=== PATIENT | female | born 1985 | race Two or more races ===

== ENCOUNTER 2016-05-08 13:51 | Inpatient (IN) | payer SELFPAY ==
[2016-05-08 15:28] LABS: BASOPHILS % (AUTO) 0.3 % (0.2-1.0); EOSINOPHILS % (AUTO) 0.5 % (0.9-2.9); HEMATOCRIT 31.8 % (36.0-47.0); HEMOGLOBIN 10.4 g/dL (12.0-16.0); LYMPHOCYTES # (AUTO) 1.2 X10^3/uL (1.3-2.9); LYMPHOCYTES % (AUTO) 17.3 % (21.0-51.0); MEAN CORPUSCULAR HEMOGLOBIN 25.5 pg (27.0-34.0); MEAN CORPUSCULAR HGB CONC 32.6 g/dL (33.0-35.0); MEAN CORPUSCULAR VOLUME 78.2 fL (80.0-100.0); MEAN PLATELET VOLUME 8.8 fL (7.4-11.0); MONOCYTES # (AUTO) 0.6 x10^3/uL (0.3-0.8); MONOCYTES % (AUTO) 8.5 % (0.0-13.0); NEUTROPHILS # (AUTO) 5.1 x10^3/uL (2.2-4.8); NEUTROPHILS % (AUTO) 73.4 % (42.0-75.0); PLATELET COUNT 185 X10^3/uL (150.0-450.0); RED BLOOD COUNT 4.06 X10^6/uL (3.5-5.4); RED CELL DISTRIBUTION WIDTH 15.6 % (11.6-16.5)
[2016-05-08 15:45] LABS: PLATELET MORPHOLOGY COMMENT NORMAL (NORMAL)
[2016-05-08 16:01] LABS: ALANINE AMINOTRANSFERASE 25 Units/L (12-78); ALBUMIN 2.4 g/dL (3.4-5.0); ALKALINE PHOSPHATASE 209 Units/L (46-116); ASPARTATE AMINO TRANSFERASE 23 Units/L (15-37); BLOOD UREA NITROGEN 6 mg/dL (7-18); CARBON DIOXIDE 20.6 mmol/L (21-32); CHLORIDE 107 mmol/L (98-107); COR CA(FOR HYPOALB) 9.3 mg/dL (8.5-10.1); CREATININE 0.55 mg/dL (0.55-1.02); GLUCOSE 79 mg/dL (65-99); SODIUM 139 mmol/L (136-145); TOTAL PROTEIN 6.4 g/dL (6.4-8.2); eGFR BLACK RACES > 60 (>60); eGFR NON BLACK RACES > 60 (>60)
[2016-05-08 18:23] VITALS: BMI 29.7
[2016-05-09 06:10] LABS: BASOPHILS % (AUTO) 0.3 % (0.2-1.0); EOSINOPHILS # (AUTO) 0.1 x10^3/uL (0.0-0.2); EOSINOPHILS % (AUTO) 2.1 % (0.9-2.9); HEMOGLOBIN 9.5 g/dL (12.0-16.0); LYMPHOCYTES % (AUTO) 30.3 % (21.0-51.0); MEAN CORPUSCULAR HEMOGLOBIN 25.8 pg (27.0-34.0); MEAN CORPUSCULAR HGB CONC 32.8 g/dL (33.0-35.0); MEAN CORPUSCULAR VOLUME 78.5 fL (80.0-100.0); MEAN PLATELET VOLUME 9.1 fL (7.4-11.0); MONOCYTES # (AUTO) 0.7 x10^3/uL (0.3-0.8); MONOCYTES % (AUTO) 10.9 % (0.0-13.0); NEUTROPHILS # (AUTO) 3.7 x10^3/uL (2.2-4.8); NEUTROPHILS % (AUTO) 56.4 % (42.0-75.0); PLATELET COUNT 157 X10^3/uL (150.0-450.0); RED BLOOD COUNT 3.69 X10^6/uL (3.5-5.4); RED CELL DISTRIBUTION WIDTH 15.6 % (11.6-16.5); WHITE BLOOD COUNT 6.6 X10^3/uL (3.6-10.0)
[2016-05-09 07:31] LABS: ALANINE AMINOTRANSFERASE 22 Units/L (12-78); ALKALINE PHOSPHATASE 181 Units/L (46-116); ASPARTATE AMINO TRANSFERASE 20 Units/L (15-37); BLOOD UREA NITROGEN 9 mg/dL (7-18); CALCIUM 7.7 mg/dL (8.5-10.1); CARBON DIOXIDE 20.6 mmol/L (21-32); CHLORIDE 108 mmol/L (98-107); COR CA(FOR HYPOALB) 9.3 mg/dL (8.5-10.1); CREATININE 0.55 mg/dL (0.55-1.02); GLUCOSE 68 mg/dL (65-99); SODIUM 141 mmol/L (136-145); TOTAL PROTEIN 5.5 g/dL (6.4-8.2); eGFR BLACK RACES > 60 (>60); eGFR NON BLACK RACES > 60 (>60)
[2016-05-09 07:53] LABS: HYPOCHROMASIA SLIGHT; PLATELET MORPHOLOGY COMMENT NORMAL (NORMAL)
--- NOTE | 2016-05-09 12:43 | US ---
HISTORY: Pre-eclampsia Study: OB ultrasound greater than 14 weeks Comparison: None Technique: Multiple grayscale and color flow Doppler images of the pelvis were obtained with focused evaluation of the fetus. Findings: A viable single intrauterine is identified with heart tones of 137 beats per minute. A vertex presentation is observed with a anterior placenta. Normal amniotic fluid volume is obser tala with an ZACHARY of 9.7 cm. Evaluation of the anatomy including the stomach, kidneys, and four- chamber heart are unremarkable. No intracranial abnormality can be identified. Value Estimated Gestational Age BPD 8.7 35 weeks 1 day HC 30.2 33 weeks 4 days AC 30.1 30 weeks 0 days FL 5.8 30 weeks 3 days IMPRESSION: A viable single intrauterine with an average ultrasound age of 33 weeks 2 days correspond to an estimated date of delivery of 06/24/2016. No anatomical abnormalities can be identified. Reported By:
[2016-05-09] MEDS ORDERED: ADACEL TDaP IM ONE (13:12)
[2016-05-09 17:55] LABS: CREATININE,URINE 107.47 mg/dL (29-226)
[2016-05-09 18:04] LABS: CREATININE 24 HOUR,URINE 1.02 g/24 hr (0.67-1.59); TOTAL PROTEIN,URINE 300.2 mg/dl (0-11.9)
--- NOTE | 2016-05-10 09:02 | US ---
Abdominal ultrasound Indication: Upper quadrant pain, patient. Comparison: None available Findings: There is no cholelithiasis, gallbladder distention, wall thickening, or pericholecystic fl uid. No biliary dilation is observed; the common duct measured 4 mm in diameter. The main portal vei n is patent, with antegrade flow. The visualized liver and right kidney were unremarkable. The pancr eas was obscured. Impression: Normal right upper quadrant ultrasound. Reported By:
[2016-05-11 05:36] LABS: ALANINE AMINOTRANSFERASE 15 Units/L (12-78); ALBUMIN 1.8 g/dL (3.4-5.0); ALKALINE PHOSPHATASE 175 Units/L (46-116); ASPARTATE AMINO TRANSFERASE 18 Units/L (15-37); BLOOD UREA NITROGEN 8 mg/dL (7-18); CALCIUM 7.4 mg/dL (8.5-10.1); CARBON DIOXIDE 21.4 mmol/L (21-32); CHLORIDE 109 mmol/L (98-107); COR CA(FOR HYPOALB) 9.2 mg/dL (8.5-10.1); CREATININE 0.51 mg/dL (0.55-1.02); GLUCOSE 69 mg/dL (65-99); SODIUM 139 mmol/L (136-145); TOTAL PROTEIN 5.3 g/dL (6.4-8.2); eGFR BLACK RACES > 60 (>60); eGFR NON BLACK RACES > 60 (>60)
[2016-05-11 05:38] LABS: BASOPHILS % (AUTO) 0.4 % (0.2-1.0); EOSINOPHILS # (AUTO) 0.1 x10^3/uL (0.0-0.2); EOSINOPHILS % (AUTO) 2.3 % (0.9-2.9); HEMATOCRIT 28.9 % (36.0-47.0); HEMOGLOBIN 9.5 g/dL (12.0-16.0); LYMPHOCYTES # (AUTO) 1.7 X10^3/uL (1.3-2.9); LYMPHOCYTES % (AUTO) 28.1 % (21.0-51.0); MEAN CORPUSCULAR HEMOGLOBIN 25.8 pg (27.0-34.0); MEAN CORPUSCULAR HGB CONC 32.9 g/dL (33.0-35.0); MEAN CORPUSCULAR VOLUME 78.3 fL (80.0-100.0); MEAN PLATELET VOLUME 9.4 fL (7.4-11.0); MONOCYTES # (AUTO) 0.6 x10^3/uL (0.3-0.8); MONOCYTES % (AUTO) 9.9 % (0.0-13.0); NEUTROPHILS # (AUTO) 3.7 x10^3/uL (2.2-4.8); NEUTROPHILS % (AUTO) 59.3 % (42.0-75.0); PLATELET COUNT 143 X10^3/uL (150.0-450.0); RED BLOOD COUNT 3.69 X10^6/uL (3.5-5.4); RED CELL DISTRIBUTION WIDTH 15.9 % (11.6-16.5); WHITE BLOOD COUNT 6.2 X10^3/uL (3.6-10.0)
[2016-05-11 06:01] LABS: HYPOCHROMASIA SLIGHT; PLATELET MORPHOLOGY COMMENT NORMAL (NORMAL)
[2016-05-13] MEDS ORDERED: D5LR 1000ML W PITOCIN 10 U/L 1,000 ML IV ONE (10:27)
[2016-05-13] MEDS ORDERED: PITOCIN ONE (10:28)
[2016-05-13] MEDS ORDERED: D5 1/2 NS 1000 ML 1,000 ML IV ONE (10:28)
[2016-05-13] MEDS ORDERED: D5 1/2 NS 1000ML W PITOCIN 20 U/L 1,000 ML IV ONE (10:28)
[2016-05-13] MEDS: D5 1/2 NS 1000 ML 1,000 ML IV SCH (11:00)
[2016-05-13] MEDS ORDERED: DILAUDID INJ IVP PRN (11:10)
[2016-05-13] MEDS ORDERED: MORPHINE SULFATE INJ 2 MG IVP PRN (11:10)
[2016-05-13] MEDS ORDERED: PHENERGAN INJ 25 MG IV PRN (11:10)
[2016-05-13] MEDS ORDERED: PITOCIN IVP ONE (11:10)
[2016-05-13] MEDS ORDERED: NUBAIN INJ 200 MG VIAL MULTIDOSE IVP PRN (11:10)
[2016-05-13] MEDS ORDERED: PITOCIN 10 UNITS in D5 LR 1000 ML 1,000 ML IV PRN (11:10)
[2016-05-13] MEDS ORDERED: REGLAN INJ 10 MG VIAL IVP PRN (11:10)
[2016-05-13] MEDS ORDERED: APRESOLINE INJ 20 MG VIAL ONE ×2 (11:18→19:38)
[2016-05-13] MEDS ORDERED: AMPICILLIN VIAL 2 GM ONE (11:18)
[2016-05-13] MEDS ORDERED: NS 100 ML IV + SPIKE MINIBAG* 100 ML IV ONE (11:19)
[2016-05-13] MEDS ORDERED: NS 100 ML IV 100 ML IV ONE (11:19)
[2016-05-13] MEDS: APRESOLINE INJ 20 MG VIAL IVP PRN ×3 (11:40→20:15)
[2016-05-13] MEDS ORDERED: AMPICILLIN VIAL 2 GM 2 GM in NS 100 ML IV + SPIKE MINIBAG* 100 ML IV SCH (12:00)
[2016-05-13 12:10] LABS: BASOPHILS % (AUTO) 0.3 % (0.2-1.0); EOSINOPHILS # (AUTO) 0.1 x10^3/uL (0.0-0.2); EOSINOPHILS % (AUTO) 0.8 % (0.9-2.9); HEMATOCRIT 33.1 % (36.0-47.0); HEMOGLOBIN 11.2 g/dL (12.0-16.0); LYMPHOCYTES # (AUTO) 1.8 X10^3/uL (1.3-2.9); LYMPHOCYTES % (AUTO) 21.7 % (21.0-51.0); MEAN CORPUSCULAR HEMOGLOBIN 25.8 pg (27.0-34.0); MEAN CORPUSCULAR HGB CONC 33.8 g/dL (33.0-35.0); MEAN CORPUSCULAR VOLUME 76.3 fL (80.0-100.0); MEAN PLATELET VOLUME 8.6 fL (7.4-11.0); MONOCYTES # (AUTO) 0.7 x10^3/uL (0.3-0.8); MONOCYTES % (AUTO) 8.8 % (0.0-13.0); NEUTROPHILS # (AUTO) 5.6 x10^3/uL (2.2-4.8); NEUTROPHILS % (AUTO) 68.4 % (42.0-75.0); PLATELET COUNT 162 X10^3/uL (150.0-450.0); RED BLOOD COUNT 4.34 X10^6/uL (3.5-5.4); RED CELL DISTRIBUTION WIDTH 15.6 % (11.6-16.5); WHITE BLOOD COUNT 8.2 X10^3/uL (3.6-10.0)
[2016-05-13 12:18] LABS: BLOOD UREA NITROGEN 6 mg/dL (7-18); CALCIUM 7.9 mg/dL (8.5-10.1); CARBON DIOXIDE 18.4 mmol/L (21-32); CHLORIDE 109 mmol/L (98-107); CREATININE 0.54 mg/dL (0.55-1.02); GLUCOSE 86 mg/dL (65-99); SODIUM 139 mmol/L (136-145); eGFR BLACK RACES > 60 (>60); eGFR NON BLACK RACES > 60 (>60)
[2016-05-13 12:34] LABS: HYPOCHROMASIA SLIGHT; PLATELET MORPHOLOGY COMMENT NORMAL (NORMAL)
[2016-05-13] MEDS: AMPICILLIN VIAL 1 GM 1 GM in NS 50 ML IV + SPIKE MINIBAG* 50 ML IV SCH ×2 (16:30→20:12)
[2016-05-13] MEDS ORDERED: NS 50 ML IV + SPIKE MINIBAG* 50 ML IV ONE (17:26)
[2016-05-13] MEDS ORDERED: AMPICILLIN VIAL 1 GM ONE (17:26)
[2016-05-13] MEDS ORDERED: CYTOTEC ONE ×2 (20:41→20:50)
[2016-05-13] MEDS ORDERED: PHENERGAN INJ 25 MG ONE (21:12)
[2016-05-13] MEDS ORDERED: LR 1000 ML IV 1,000 ML IV ONE (21:30)
[2016-05-13] MEDS ORDERED: CYTOTEC VG SCH ×2 (22:59→23:00)
[2016-05-14] MEDS: AMPICILLIN VIAL 1 GM 1 GM in NS 50 ML IV + SPIKE MINIBAG* 50 ML IV SCH ×2 (01:00→04:38)
[2016-05-14] MEDS: APRESOLINE INJ 20 MG VIAL IVP PRN ×2 (01:00→05:21)
[2016-05-14] MEDS ORDERED: APRESOLINE INJ 20 MG VIAL ONE (01:11)
[2016-05-14] MEDS ORDERED: NS 50 ML IV + SPIKE MINIBAG* 50 ML IV ONE ×2 (01:50→04:34)
[2016-05-14] MEDS ORDERED: AMPICILLIN VIAL 1 GM ONE ×2 (01:50→04:34)
[2016-05-14] MEDS: D5 1/2 NS 1000 ML 1,000 ML IV SCH ×2 (04:39→05:05)
[2016-05-14] MEDS ORDERED: D5 1/2 NS 1000 ML 1,000 ML IV ONE (05:04)
[2016-05-14] MEDS ORDERED: LR 1000 ML IV 1,000 ML IV ONE (06:57)
[2016-05-14] MEDS ORDERED: DURAMORPH ONE (07:16)
[2016-05-14] MEDS ORDERED: BENADRYL INJ 50 MG VIAL IVP PRN ×2 (08:09→08:29)
[2016-05-14] MEDS ORDERED: PHENERGAN INJ 25 MG IVP PRN (08:09)
[2016-05-14] MEDS ORDERED: ZOFRAN INJ 4 MG VIAL IVP PRN (08:09)
[2016-05-14] MEDS ORDERED: REGLAN INJ 10 MG VIAL IVP PRN (08:09)
[2016-05-14] MEDS ORDERED: MAGNESIUM SULFATE 40 GM IV 40 GM/1,000 ML BAG IV ONE (08:21)
[2016-05-14] MEDS ORDERED: PERCOCET TAB 5/325 MG PO PRN (08:29)
[2016-05-14] MEDS ORDERED: NARCAN INJ IVP PRN ×2 (08:29)
[2016-05-14] MEDS ORDERED: MYLICON TAB 80 MG CHEW PO PRN (08:29)
[2016-05-14] MEDS ORDERED: D5 1/2 NS 1000 ML 1,000 ML with PITOCIN 20 UNITS IV SCH ×2 (09:00)
[2016-05-14] MEDS ORDERED: NS 1000 ML 1,000 ML ONE (09:38)
[2016-05-14] MEDS: MAGNESIUM SULFATE 40 GM IV 40 GM/1,000 ML BAG IV PRN (09:42)
[2016-05-14] MEDS: TORADOL 30 MG VIAL IVP PRN ×2 (09:51→21:36)
[2016-05-14] MEDS: ZANTAC PO SCH ×2 (09:52→21:36)
[2016-05-14] MEDS: PRENATAL PLUS PO SCH (09:52)
[2016-05-14] MEDS ORDERED: EPHEDRINE SULFATE INJ ONE (13:04)
[2016-05-14] MEDS ORDERED: PITOCIN ONE (13:04)
[2016-05-14] MEDS ORDERED: VERSED ONE (13:04)
[2016-05-15] MEDS: MAGNESIUM SULFATE 40 GM IV 40 GM/1,000 ML BAG IV PRN ×2 (04:10→15:45)
[2016-05-15 06:04] LABS: HEMOGLOBIN 10.6 g/dL (12.0-16.0)
[2016-05-15] MEDS: PRENATAL PLUS PO SCH (08:24)
[2016-05-15] MEDS: MOTRIN TAB 800 MG PO PRN ×2 (08:24→15:30)
[2016-05-15] MEDS: ZANTAC PO SCH ×2 (08:24→21:14)
[2016-05-15] MEDS ORDERED: NS 1000 ML 1,000 ML ONE (15:07)
[2016-05-15] MEDS ORDERED: NS 1000 ML 1,000 ML IV SCH (16:00)
[2016-05-15] MEDS: PERCOCET TAB 5/325 MG PO PRN ×2 (17:42→21:41)
[2016-05-16] MEDS: PERCOCET TAB 5/325 MG PO PRN (06:17)
[2016-05-16 06:30] LABS: BASOPHILS % (AUTO) 0.2 % (0.2-1.0); EOSINOPHILS # (AUTO) 0.2 x10^3/uL (0.0-0.2); EOSINOPHILS % (AUTO) 1.8 % (0.9-2.9); HEMATOCRIT 32.4 % (36.0-47.0); HEMOGLOBIN 10.5 g/dL (12.0-16.0); LYMPHOCYTES # (AUTO) 1.5 X10^3/uL (1.3-2.9); LYMPHOCYTES % (AUTO) 17.4 % (21.0-51.0); MEAN CORPUSCULAR HEMOGLOBIN 25.3 pg (27.0-34.0); MEAN CORPUSCULAR HGB CONC 32.2 g/dL (33.0-35.0); MEAN CORPUSCULAR VOLUME 78.4 fL (80.0-100.0); MEAN PLATELET VOLUME 8.8 fL (7.4-11.0); MONOCYTES # (AUTO) 0.9 x10^3/uL (0.3-0.8); MONOCYTES % (AUTO) 10.2 % (0.0-13.0); NEUTROPHILS % (AUTO) 70.4 % (42.0-75.0); PLATELET COUNT 150 X10^3/uL (150.0-450.0); RED BLOOD COUNT 4.14 X10^6/uL (3.5-5.4); RED CELL DISTRIBUTION WIDTH 16.2 % (11.6-16.5); WHITE BLOOD COUNT 8.5 X10^3/uL (3.6-10.0)
[2016-05-16 06:40] LABS: ALANINE AMINOTRANSFERASE 30 Units/L (12-78); ALBUMIN 1.5 g/dL (3.4-5.0); ALKALINE PHOSPHATASE 149 Units/L (46-116); ASPARTATE AMINO TRANSFERASE 43 Units/L (15-37); BLOOD UREA NITROGEN 4 mg/dL (7-18); CARBON DIOXIDE 21.9 mmol/L (21-32); CHLORIDE 107 mmol/L (98-107); CREATININE 0.48 mg/dL (0.55-1.02); GLUCOSE 86 mg/dL (65-99); SODIUM 140 mmol/L (136-145); TOTAL PROTEIN 5.2 g/dL (6.4-8.2); eGFR BLACK RACES > 60 (>60); eGFR NON BLACK RACES > 60 (>60)
[2016-05-16 07:41] LABS: PLATELET MORPHOLOGY COMMENT NORMAL (NORMAL)
[2016-05-16 07:42] LABS: HYPOCHROMASIA SLIGHT
[2016-05-16] MEDS: ZANTAC PO SCH ×2 (08:36→21:10)
[2016-05-16] MEDS: PRENATAL PLUS PO SCH (08:36)
[2016-05-16] MEDS ORDERED: NORMODYNE TAB 100 MG PO SCH (11:00)
[2016-05-16] MEDS: BACTROBAN OINT TOP SCH ×3 (12:47→21:10)
[2016-05-16] MEDS ORDERED: MOTRIN TAB 800 MG PO PRN (14:20)
[2016-05-16] MEDS ORDERED: MYLICON TAB 80 MG CHEW PO PRN (14:20)
[2016-05-16] MEDS ORDERED: COLACE CAP 100 MG PO SCH (21:00)
[2016-05-16] MEDS: COLACE CAP 100 MG PO SCH (21:09)
[2016-05-16] MEDS: NORMODYNE TAB 100 MG PO SCH (21:10)
[2016-05-17] MEDS: BACTROBAN OINT TOP SCH ×2 (05:31→14:11)
[2016-05-17] MEDS: NORMODYNE TAB 100 MG PO SCH ×2 (09:16→20:52)
[2016-05-17] MEDS: COLACE CAP 100 MG PO SCH ×2 (09:16→20:51)
[2016-05-17] MEDS: PRENATAL PLUS PO SCH (09:17)
[2016-05-17] MEDS: ZANTAC PO SCH ×2 (09:17→20:52)
[2016-05-17] MEDS ORDERED: ADACEL TDaP IM ONE ×2 (10:50→17:47)
[2016-05-17] MEDS: PERCOCET TAB 5/325 MG PO PRN (20:51)
[2016-05-18] MEDS: BACTROBAN OINT TOP SCH (01:46)
[2016-05-18 08:02] VITALS: BP 134/72
[2016-05-18] MEDS: PRENATAL PLUS PO SCH (10:29)
[2016-05-18] MEDS: PERCOCET TAB 5/325 MG PO PRN (10:29)
[2016-05-18] MEDS: ZANTAC PO SCH (10:31)
[2016-05-18] MEDS: NORMODYNE TAB 100 MG PO SCH (10:31)
[2016-05-18] MEDS: COLACE CAP 100 MG PO SCH (10:31)
== END 2016-05-18 13:30 | disposition home or self-care (01) | DRG 765 ==
LOC: MED/SURG 13:51 → LD 05-13 11:00 → ICU 05-14 08:08 → MED/SURG 05-16 14:00
PROVIDERS: ADMIT Obstetrics & Gynecology Obstetrics; ATTEND Obstetrics & Gynecology Obstetrics
PROC: 3E033VJ Introduction of Other Hormone into Peripheral Vein, Percutaneous Approach (ICD-10-PCS; 2016-05-14)
PROC: 3E0234Z Introduction of Serum, Toxoid and Vaccine into Muscle, Percutaneous Approach (ICD-10-PCS; 2016-05-14)
PROC: 10D00Z1 Extraction of Products of Conception, Low, Open Approach (ICD-10-PCS; principal; 2016-05-14 07:30)
DX: O14.13 Severe pre-eclampsia, third trimester (principal); Z37.0 Single live birth; O36.5130 Maternal care for known or suspected placental insufficiency, third trimester, not applicable or unspecified; O61.8 Other failed induction of labor; O60.14X0 Preterm labor third trimester with preterm delivery third trimester, not applicable or unspecified; Z3A.35 35 weeks gestation of pregnancy; Z23 Encounter for immunization
CPT/HCPCS: 36415; 76705; 76815; 80048; 80053; 81050; 82570; 83525; 83735; 84157; 84550; 85014; 85018; 85025; 86592; 86850; 86900; 86901; A4216; A4222; S0191; S0197; J0290; J0360; J1885; J2250; J2550; J2590; J3475; J7042; J7120

== ENCOUNTER 2019-10-03 14:48 | Inpatient (IN) ==
[~2019-10-03 14:48] MED LIST: DECADRON INJ ONE; MARCAINE SPINAL ONE; TORADOL 30 MG VIAL ONE; XYLOCAINE 1 % (PLAIN) ONE; ZOFRAN INJ 4 MG VIAL ONE
[2019-10-03] MEDS ORDERED: LR 1000 ML IV 1,000 ML IV ONE ×2 (15:14→15:32)
[2019-10-03] MEDS ORDERED: ANCEF 1 GRAM IV PREMIX* 1 G/50 ML BAG IV ONE (15:14)
[2019-10-03 16:05] LABS: BASOPHILS % (AUTO) 0.6 % (0.2-1.0); EOSINOPHILS % (AUTO) 0.3 % (0.9-2.9); HEMATOCRIT 38.6 % (36.0-47.0); HEMOGLOBIN 12.9 g/dL (12.0-16.0); LYMPHOCYTES # (AUTO) 1.8 X10^3/uL (1.3-2.9); LYMPHOCYTES % (AUTO) 27.6 % (21.0-51.0); MEAN CORPUSCULAR HEMOGLOBIN 28.7 pg (27.0-34.0); MEAN CORPUSCULAR HGB CONC 33.4 g/dL (33.0-35.0); MEAN CORPUSCULAR VOLUME 86.1 fL (80.0-100.0); MEAN PLATELET VOLUME 8.7 fL (7.4-11.0); MONOCYTES # (AUTO) 0.5 x10^3/uL (0.3-0.8); MONOCYTES % (AUTO) 7.3 % (0.0-13.0); NEUTROPHILS # (AUTO) 4.1 x10^3/uL (2.2-4.8); NEUTROPHILS % (AUTO) 64.2 % (42.0-75.0); PLATELET COUNT 139 X10^3/uL (150.0-450.0); RED BLOOD COUNT 4.48 X10^6/uL (3.5-5.4); RED CELL DISTRIBUTION WIDTH 14.7 % (11.6-16.5); WHITE BLOOD COUNT 6.4 X10^3/uL (3.6-10.0)
[2019-10-03 16:13] LABS: BLOOD UREA NITROGEN 8 mg/dL (7-18); CALCIUM 7.6 mg/dL (8.5-10.1); CARBON DIOXIDE 20.9 mmol/L (21-32); CHLORIDE 104 mmol/L (98-107); CREATININE 0.65 mg/dL (0.55-1.02); SODIUM 136 mmol/L (136-145); eGFR NON BLACK RACES > 60 (>60)
[2019-10-03] MEDS ORDERED: DILAUDID INJ ONE (16:16)
[2019-10-03] MEDS ORDERED: DECADRON INJ ONE (16:16)
[2019-10-03] MEDS ORDERED: NS 1000 ML 2,000 ML ONE (16:17)
[2019-10-03 16:27] LABS: URIC ACID 4.9 mg/dL (2.6-6.0)
[2019-10-03] MEDS ORDERED: ANCEF VIAL 1 GRAM IVP SCH (16:30)
[2019-10-03] MEDS ORDERED: NS IRRIGATION* 1,000 ML ONE (16:30)
[2019-10-03 17:57] LABS: BILIRUBIN,URINE NEGATIVE (NEGATIVE); BLOOD/HEMOGLOBIN,URINE 1+ (NEGATIVE); GLUCOSE, URINE NEGATIVE (NEGATIVE); KETONES,URINE 1+ (NEGATIVE); LEUKOCYTE ESTERASE ,URINE 1+ (NEGATIVE); NITRITES,URINE NEGATIVE (NEGATIVE); PROTEIN,URINE 4+ (NEGATIVE); UROBILINOGEN,URINE NORMAL (NORMAL)
[2019-10-03 18:07] LABS: APPEARANCE,URINE CLEAR (CLEAR); BACTERIA,URINE TRACE /HPF (NEGATIVE); COLOR,URINE PALE YELLOW (YELLOW); SQUAMOUS EPITHELIAL CELL,UR RARE /HPF (NEGATIVE)
[2019-10-03] MEDS ORDERED: PHENERGAN INJ 25 MG IM PRN (18:27)
[2019-10-03] MEDS ORDERED: DILAUDID INJ IVP PRN (18:27)
[2019-10-03] MEDS ORDERED: ZOFRAN INJ 4 MG VIAL IVP PRN (18:27)
[2019-10-03] MEDS ORDERED: REGLAN INJ 10 MG VIAL IVP PRN (18:27)
[2019-10-03] MEDS ORDERED: BENADRYL INJ 50 MG VIAL IVP PRN (18:27)
[2019-10-03] MEDS ORDERED: D5 1/2 NS 1L W PITOCIN 20 UNITS/L 20 UNITS/1,000 ML BAG IV ONE (18:39)
[2019-10-03] MEDS ORDERED: MYLICON TAB 80 MG CHEW PO PRN (18:57)
[2019-10-03] MEDS ORDERED: ADACEL or BOOSTRIX TDaP VACCINE IM ONE (18:57)
[2019-10-03] MEDS ORDERED: D5 1/2 NS 1000 ML 1,000 ML with PITOCIN 20 UNITS IV SCH ×2 (19:00)
[2019-10-03] MEDS: MOTRIN TAB 800 MG PO PRN (22:42)
[2019-10-04] MEDS: MOTRIN TAB 800 MG PO PRN (06:03)
[2019-10-04 06:55] LABS: HEMATOCRIT 36.2 % (36.0-47.0)
[2019-10-04] MEDS: PRENATAL PLUS PO SCH (08:20)
[2019-10-04] MEDS ORDERED: NS 100 ML IV 100 ML with VENOFER 200 MG IV NR ×2 (09:21)
[2019-10-04] MEDS: NORCO 10/325 TAB PO PRN (15:45)
[2019-10-04] MEDS ORDERED: MAGNESIUM SULFATE 40 GRAMS IV 40 G/1,000 ML BAG IV PRN (17:04)
[2019-10-04] MEDS ORDERED: ZESTRIL TAB 20 MG PO SCH (23:00)
[2019-10-04] MEDS ORDERED: ZESTRIL TAB 20 MG ONE (23:57)
[2019-10-05] MEDS: NORCO 10/325 TAB PO PRN (06:29)
[2019-10-05] MEDS: PRENATAL PLUS PO SCH (08:29)
[2019-10-05 13:33] VITALS: BP 167/96
== END 2019-10-05 15:20 | disposition home or self-care (01) | DRG 787 ==
LOC: LD 14:48 → MED/SURG 18:16
PROVIDERS: ADMIT Obstetrics & Gynecology Obstetrics; ATTEND Obstetrics & Gynecology Obstetrics
DX: Z37.0 Single live birth; N85.8 Other specified noninflammatory disorders of uterus; O14.93 Unspecified pre-eclampsia, third trimester; Z3A.38 38 weeks gestation of pregnancy; O34.211 Maternal care for low transverse scar from previous cesarean delivery; O13.3 Gestational [pregnancy-induced] hypertension without significant proteinuria, third trimester; O36.5930 Maternal care for other known or suspected poor fetal growth, third trimester, not applicable or unspecified